=== PATIENT | male | born 1995 | race Two or more races ===

== ENCOUNTER 2025-01-09 10:05 | Emergency (ER) | payer BC ==
[~2025-01-09] VITALS: Ht 182.9 cm; Wt 74.8 kg
[2025-01-09 10:13] VITALS: TEMP 98.3
[2025-01-09] MEDS ORDERED: ONDANSETRON HCL/PF 4 MG/2 ML VIAL ONE (10:30)
[2025-01-09] MEDS ORDERED: FAMOTIDINE/PF INJ 20 MG/2 ML VIAL IV ONE (10:30)
[2025-01-09] MEDS ORDERED: KETOROLAC TROMETHAMINE 15 MG/ML VIAL ONE (10:35)
[2025-01-09] MEDS ORDERED: DICYCLOMINE HCL INJ 20 MG/2 ML AMPUL IM ONE (10:35)
[2025-01-09] MEDS: ONDANSETRON HCL/PF 4 MG/2 ML VIAL IVP ONE (10:45)
[2025-01-09] MEDS: KETOROLAC TROMETHAMINE 15 MG/ML VIAL IV ONE (10:46)
[2025-01-09] MEDS: IV NS 0.9% 1,000 ML BAG IV ONE (10:47)
[2025-01-09] MEDS: DICYCLOMINE HCL INJ 20 MG/2 ML AMPUL IM ONE (10:48)
[2025-01-09 10:51] LABS: PLATELET COUNT (AUTO) 180 K/uL (150-450); RED BLOOD CELL COUNT(AUTO) 5.39 MIL/uL (4.5-6.0); RED CELL DISTRIBUTION WIDTH 12.7 % (11.5-15.0); WHITE BLOOD COUNT (AUTO) 8.7 K/uL (4.3-11.0)
[2025-01-09 11:00] LABS: CALCIUM, SERUM 8.8 mg/dL (8.5-10.1); CREATININE 1.3 mg/dL (0.6-1.3); SODIUM SERUM 136.0 mmol/L (136-145); UREA NITROGEN, BLOOD 17.0 mg/dL (7-18)
[2025-01-09 11:07] LABS: ASPARTATE AMINOTRANSFERASE 31.0 U/L (15-37); TOTAL PROTEIN, SERUM 7.5 g/dL (6.4-8.2)
[2025-01-09] MEDS ORDERED: DICY10CA37 PO (11:13)
[2025-01-09] MEDS ORDERED: ONDA4TAB11 PO (11:13)
[2025-01-09 11:37] VITALS: BP 115/70; O2SAT 98
== END 2025-01-09 11:38 | disposition home or self-care (01) ==
LOC: ER 10:18
DX: R19.7 Diarrhea, unspecified (principal); R10.9 Unspecified abdominal pain
CPT/HCPCS: 99284; 96374; 96361; 96375; 85025; 80048; 83690; 80076; 36415; 96372; J1885; J2405; J7030; J0500; J1308